=== PATIENT | male | born 1955 | race African-American/Black ===

== ENCOUNTER 2024-05-23 11:56 | Emergency (ER) | payer OTHER ==
[2024-05-23 12:33] VITALS: TEMP 98.7; BMI 29.8
[2024-05-23 13:28] VITALS: BP 128/81; PULSE 65; RESP 17
[2024-05-23] MEDS ORDERED: ACETAMINOPHEN INJECTION 100 ML IVPB ONE (14:06)
[2024-05-23] MEDS: ACETAMINOPHEN 1000 MG/100 ML BAG IVPB ONE (14:09)
[2024-05-23 14:10] LABS: BASO % 0.6 % (0-2.0); EOS % 1.8 % (0-4.5); HEMATOCRIT 42.9 % (35.4-49); HEMOGLOBIN 14.8 GM/dL (11.7-16.9); LYMPH % 33.5 % (8-40); MCH 31.6 pg (25.7-33.7); MCHC 34.5 g/dl (32.0-35.9); MEAN CELL VOLUME 91.8 fl (80-96); MEAN PLT VOLUME 9.3 fl (7.5-11.1); MONO % 12.4 % (3.8-10.2); NEUT % 51.7 % (42.8-82.8); PLATELET COUNT 117 10^3/uL (134-434); RBC 4.67 M/mm3 (4.00-5.60); RDW 13.7 % (11.9-15.9); WHITE BLOOD COUNT 5.7 K/mm3 (4.0-10.0)
[2024-05-23 14:38] LABS: POTASSIUM 5.3 mmol/L (3.5-5.1)
[2024-05-23 14:40] LABS: ALBUMIN 3.8 g/dl (3.4-5.0); CALCIUM 10.1 mg/dL (8.5-10.1)
[2024-05-23 14:41] LABS: BLOOD UREA NITROGEN 13.9 mg/dL (7-18)
[2024-05-23 14:46] LABS: BILIRUBIN,TOTAL 0.8 mg/dL (0.2-1); TOT PROT 7.5 g/dl (6.4-8.2)
== END 2024-05-23 16:42 | disposition home or self-care (01) ==
LOC: JER 11:56
PROC: 3E033NZ Introduction of Analgesics, Hypnotics, Sedatives into Peripheral Vein, Percutaneous Approach (ICD-10-PCS; principal; 2024-05-23)
DX: R07.9 Chest pain, unspecified (principal); R05.9 Cough, unspecified; Z20.822 Contact with and (suspected) exposure to COVID-19
CPT/HCPCS: 0241U-QW; 36415; 71045-TC-FY; 80053; 84484; 85025; 93005; 93010; 99285-25; J0131